=== PATIENT | female | born 1970 | race Caucasian/White ===

== ENCOUNTER 2020-10-16 08:46 | Outpatient (CLI) | payer MEDICARE, MEDICAID, SELFPAY ==
--- NOTE | 2020-10-16 08:52 | MM_ITS ---
WS: [id number] Bilateral screening digital mammogram, 10/16/2020 Clinical Data: SCREENING Comparison: 10/28/2016, 04/28/2015, 04/10/2014, 04/09/2013, 10/13/2008. Findings: The breast parenchymal pattern shows fibroglandular tissue No spiculated masses or clustered calcific ations are seen. There are no secondary signs of carcinoma. MM/[id number] Impression: 1. Negative bilateral mammogram unchanged. 2. Recommend annual screening mammograms. BIRADS: 1-Negative FOLLOW UP: 1 Year Follow-up The CAD seam checker was used.
== END 2020-10-16 08:47 | disposition home or self-care (01) ==
PROVIDERS: PCP Family Medicine; Visit Provider Family Medicine
DX: Z12.31 Encounter for screening mammogram for malignant neoplasm of breast (principal)
CPT/HCPCS: 77067

== ENCOUNTER 2022-02-25 07:18 | Outpatient (CLI) | payer MEDICARE, MEDICAID, SELFPAY ==
--- NOTE | 2022-02-25 07:34 | MM_ITS ---
WS: [id number] Exam: [id number] Date/Time of Exam: 02/25/2022 7:44 AM Reason For Exam: SCREENING VIEWS: MLO and CC views both breasts. Comparison made with prior exam of 10/13/2008, 04/09/2013, 04/10/2014, 04/28/2015, 10/28/2016, 10/16/2020. . Findings: There was no sign of mass, architectural distortion or suspicious calcification in either breast. Sc attered fibroglandular densities MM/[place] [id number] Impression: BI-RADS: 2-Benign FOLLOW-UP: 1 Year Follow-up This mammogram was also analyzed by the Computer Aided Detection System R2 Imag e Hematologist Oncologist.
== END 2022-02-25 07:19 | disposition home or self-care (01) ==
LOC: RAD 07:19
PROVIDERS: PCP Family Medicine; Visit Provider Family Medicine
DX: Z12.31 Encounter for screening mammogram for malignant neoplasm of breast (principal)
CPT/HCPCS: 77067

== ENCOUNTER 2022-03-21 06:25 | Day surgery (SDC) | payer MEDICARE, MEDICAID, SELFPAY ==
[2022-03-17 12:00] VITALS: BMI 30.7
[2022-03-21 06:46] VITALS: BP 127/94; PULSE 88; RESP 18; TEMP 36.2; O2SAT 98
[2022-03-21] MEDS: sodium chloride 0.9% 1,000 ML 30 ML IV (06:58)
--- NOTE | 2022-03-21 07:09 | ANES.PREANE2 ---
Pre-Anesthetic Assessment Height/Weight: Height 1.52 m Weight 71.214 kg Temp Pulse Resp BP Pulse Ox O2 Del Method 97.1 F L 88 18 127/94 98 03/21/22 06:46 03/21/22 06:46 03/21/22 06:46 03/21/22 06:46 03/21/22 06:46 03/21/22 06:46 Preop Diagnosis: Fe def anemia Operation Date: 03/21/22 08:00 Proposed Procedures p EGD/colonoscopy 04144,93417,D50.9(Not Applicable) - Edgardo Escobar MD s Colonoscopy(Not Applicable) - Edgardo Escobar MD Familial anesthetic complications: none Was Beta Sonia taken within 24 hours: N/A Was Clonidine taken within 24 hours: N/A Last intake: Intake Last Liquid Date 03/20/22 Last Liquid Time 20:00 Last Solid Date 03/19/22 Last Solid Time 18:00 Social No alcohol and No tobacco Exam alert, oriented x 3, clear to auscultation bilaterally and regular rate & rhythm Airway Submandibular: within normal limits Cervical ROM: within normal limits Mallampati: Class II Dentition: chipped and full Pulmonary Sleep Apnea CV/HEM Anemia and Hypertension None reported Hepatic None reported GI Gastroesophageal Reflux Disease Metabolic None reported Musc/skel None reported Neuropsych Anxiety Anesthetic Plan ASA status: 3 Anesthesia: MAC Risk of > 500 ml blood loss (7ml/kg in children): No Medications/Allergies Home Medications Medication Instructions Recorded Confirmed Last Taken Type ascorbate calcium (vitamin C) 500 500 mg PO BID 01/14/22 03/17/22 03/18/22 History mg tablet escitalopram oxalate 20 mg tablet 20 mg PO DAILY 01/14/22 03/17/22 03/18/22 History ferrous sulfate 325 mg (65 mg 325 mg PO BID 01/14/22 03/17/22 03/18/22 History iron) tablet lisinopril 20 mg tablet 20 mg PO DAILY 01/14/22 03/17/22 03/18/22 History lorazepam 0.5 mg tablet 0.5 mg PO DAILY PRN Anxiety 01/14/22 03/17/22 03/18/22 History melatonin 10 mg tablet 10 mg PO DAILY 01/14/22 03/17/22 03/18/22 History pantoprazole 40 mg tablet,delayed 40 mg PO DAILY 01/14/22 03/17/22 03/18/22 History release rosuvastatin 10 mg tablet 10 mg PO DAILY 01/14/22 03/17/22 03/18/22 History Allergies Allergy/AdvReac Type Severity Reaction Status Date / Time Penicillins Allergy rash Verified 03/09/22 08:55 Current Medications Generic Name Dose Route Start Last Admin Trade Name Freq PRN Reason Stop Dose Admin Sodium Chloride 1,000 mls @ 30 mls/hr 03/21/22 06:45 03/21/22 06:58 Sodium Chloride 0.9% IV 30 mls/hr .Q24H VALENTÍN Administration PFSH Anesthesia Medical History (Updated 03/09/22 @ 10:17 by Edgardo Escobar MD) HTN (hypertension) with goal to be determined Mentally challenged Social History Smoking and tobacco status: never smoked Data Anesthesia Cardiac Studies: No Data to Display
--- NOTE | 2022-03-21 07:41 | W.PM.OPSFHP ---
Same Day Surgery H&P Indication for Procedure/HPI DATE OF PROCEDURE: March 21, 2022 CHIEF COMPLAINT/INDICATIONFOR SURGICAL PROCEDURE: Fe def anemia. PREOP DIAGNOSIS: Fe def anemia PLANNED PROCEDURE: Operation Date: 03/21/22 08:00 Proposed Procedures p EGD/colonoscopy 75017,97129,D50.9(Not Applicable) - Edgardo Escobar MD s Colonoscopy(Not Applicable) - Edgardo Escobar MD Medications/Allergies* Home Medications Medication Instructions Recorded Confirmed Type ascorbate calcium (vitamin C) 500 500 mg PO BID 01/14/22 03/17/22 History mg tablet escitalopram oxalate 20 mg tablet 20 mg PO DAILY 01/14/22 03/17/22 History ferrous sulfate 325 mg (65 mg 325 mg PO BID 01/14/22 03/17/22 History iron) tablet lisinopril 20 mg tablet 20 mg PO DAILY 01/14/22 03/17/22 History lorazepam 0.5 mg tablet 0.5 mg PO DAILY PRN Anxiety 01/14/22 03/17/22 History melatonin 10 mg tablet 10 mg PO DAILY 01/14/22 03/17/22 History pantoprazole 40 mg tablet,delayed 40 mg PO DAILY 01/14/22 03/17/22 History release rosuvastatin 10 mg tablet 10 mg PO DAILY 01/14/22 03/17/22 History Allergies/Adverse Reactions Allergy/AdvReac Type Severity Reaction Status Date / Time Penicillins Allergy rash Verified 03/09/22 08:55 Current Medications: Generic Name Dose Route Start Last Admin Trade Name Freq PRN Reason Stop Dose Admin Sodium Chloride 1,000 mls @ 30 mls/hr 03/21/22 06:45 03/21/22 06:58 Sodium Chloride 0.9% IV 30 mls/hr .Q24H VALENTÍN Administration Pertinent History/Comorbid Conditions* Medical History (Updated 03/09/22 @ 10:17 by Edgardo Escobar MD) HTN (hypertension) with goal to be determined Mentally challenged Social History Smoking and tobacco status: never smoked Pertinent Exam Findings alert, oriented x 3, clear to auscultation bilaterally, regular rate & rhythm, operative site marked and procedure specific exam findings Recommendations Surgery/Procedure today Coding Level of Care Code Acute Curtain Supervisor for Jefferyg Gaby
[2022-03-21 08:17] VITALS: BP 123/81; PULSE 72; RESP 18; TEMP 36.1; O2SAT 96
--- NOTE | 2022-03-21 08:22 | ANE.PACU2 ---
Inpatient post-anesthesia follow up: Airway intact: Yes Vital signs: Temperature 97.1 F Pulse Rate 88 Respiratory Rate 18 Blood Pressure 127/94 Pulse Oximetry 98 Oxygen Delivery Me thod Room Air Oxygen Flow Rate Fraction of Inspir ed Oxygen Hydration adequate: Yes Nausea and vomiting: No Pain level: 1 Mental status: Baseline
[2022-03-21 08:30] VITALS: BP 124/90; PULSE 73; RESP 18; O2SAT 98
== END 2022-03-21 08:46 | disposition home or self-care (01) ==
PROVIDERS: PCP Family Medicine; Visit Provider Internal Medicine
PROC: 0DJ08ZZ Inspection of Upper Intestinal Tract, Via Natural or Artificial Opening Endoscopic (ICD-10-PCS; CPT 43235; principal; 2022-03-21 08:00)
PROC: 0DJD8ZZ Inspection of Lower Intestinal Tract, Via Natural or Artificial Opening Endoscopic (ICD-10-PCS; CPT 45378; 2022-03-21 08:00)
DX: D50.9 Iron deficiency anemia, unspecified (principal); I10 Essential (primary) hypertension; K22.10 Ulcer of esophagus without bleeding; K44.9 Diaphragmatic hernia without obstruction or gangrene; G47.30 Sleep apnea, unspecified; K21.9 Gastro-esophageal reflux disease without esophagitis; F41.9 Anxiety disorder, unspecified
CPT/HCPCS: 43239; 45378; 88305; 88342; J2704; J7030

== ENCOUNTER 2023-03-22 08:08 | Outpatient (CLI) | payer MEDICARE, MEDICAID, SELFPAY ==
--- NOTE | 2023-03-22 08:15 | MM_ITS ---
WS: [id number] Exam: [id number] Date/Time of Exam: 03/22/2023 8:15 AM Reason For Exam: SCREENING VIEWS: MLO and CC views both breasts. Comparison made with prior exam of 10/13/2008, 04/09/2013, 04/10/2014, 04/28/2015, 10/28/2016, 10/16/2020, 02/25/2022.. Findings: There was no sign of mass, architectural distortion or suspicious calcification in either breast. Sta ble appearing nodular densities in both breasts. There are scattered areas of fibroglandular density. Impression: MM/[place] [id number] BI-RADS: 2-Benign FOLLOW-UP: 1 Year Follow-up This mammogram was also analyzed by the Computer Aided Detection System R2 Imag e Tank Stave Assembler.
== END 2023-03-22 08:09 | disposition home or self-care (01) ==
LOC: RAD 08:10
PROVIDERS: PCP Family Medicine; Visit Provider Family Medicine
DX: Z12.31 Encounter for screening mammogram for malignant neoplasm of breast (principal)
CPT/HCPCS: 77067

== ENCOUNTER 2024-04-23 08:50 | Outpatient (CLI) | payer MEDICARE, MEDICAID, SELFPAY ==
--- NOTE | 2024-04-23 08:54 | MM_ITS ---
WS: [id number] BILATERAL 3D TOMOSYNTHESIS DIGITAL SCREENING MAMMOGRAPHY WITH CAD CLINICAL INFORMATION: SCREENING HISTORY: Screening mammogram. No current complaints. COMPARISON: 2022 TECHNIQUE: Bilateral CC and MLO views. FINDINGS: Scattered fibroglandular densities bilaterally. No suspicious focal mass, asymmetry, calcifications, or architectural distortion. No evidence of malignancy. Stable intramammary lymph node upper outer RI T breast MM/MM scr BI tomosynthesis [id number] IMPRESSION: DENSITY: There are scattered areas of fibroglandular density. BI-RADS: 2 - Benign. FOLLOW UP: 1 Year Follow-up Recommend return to annual screening mammography.
== END 2024-04-23 08:51 | disposition home or self-care (01) ==
LOC: RAD 08:51
PROVIDERS: PCP Family Medicine; Visit Provider Family Medicine
DX: Z12.31 Encounter for screening mammogram for malignant neoplasm of breast (principal); R92.323 Mammographic fibroglandular density, bilateral breasts
CPT/HCPCS: 77063; 77067

== ENCOUNTER 2025-04-28 08:42 | Outpatient (CLI) | payer MEDICAID, SELFPAY ==
--- NOTE | 2025-04-28 08:45 | MM_ITS ---
WS: [id number] VIEWS: MLO and CC views both breasts. 3D digital tomosynthesis is also included in this exam. Comparison made with prior exam of 10/13/2008, 04/09/2013, 04/10/2014, 04/28/2015, 10/28/2016, 10/16/2020, 02/25/2022, 03/22/2023, 04/23/2024.. Findings: There are scattered areas of fibroglandular density. No sign of suspicious mass, tumor calcification or architectural distortion. MM/MM scr BI tomosynthesis [id number] Impression: BI-RADS: 2 - Benign. FOLLOW-UP: 1 Year Follow-up This mammogram was also analyzed by the Computer Aided Detection System R2 Imag e Air Export Agent.
== END 2025-04-28 08:43 | disposition home or self-care (01) ==
PROVIDERS: PCP Family Medicine; Visit Provider Family Medicine
DX: Z12.31 Encounter for screening mammogram for malignant neoplasm of breast (principal); R92.323 Mammographic fibroglandular density, bilateral breasts
CPT/HCPCS: 77063; 77067